=== PATIENT | female | born 1990 | race Caucasian/White ===

== ENCOUNTER 2021-02-21 02:38 | Emergency (ER) | payer OTHER ==
[2021-02-21 02:50] VITALS: BMI 23.9
[2021-02-21] MEDS ORDERED: FAMOTIDINE 20 MG/50 ML IVPB 20 MG/50 ML MG IVPB ONE ×2 (03:32→03:40)
[2021-02-21] MEDS ORDERED: ACETAMINOPHEN 1000 MG/100 ML VIAL (NON FORMULARY) IVPB ONE (03:32)
[2021-02-21] MEDS ORDERED: SODIUM CHLORIDE 0.9% 500 ML INFUS.BAG IV ONE (03:32)
[2021-02-21] MEDS ORDERED: ONDANSETRON 4 MG/2 ML VIAL IVPUSH ONE (03:32)
[2021-02-21] MEDS ORDERED: ONDANSETRON 4 MG/2 ML VIAL ONE (03:40)
[2021-02-21] MEDS ORDERED: ACETAMINOPHEN INJECTION 100 ML IVPB ONE (03:40)
[2021-02-21 04:17] LABS: PH,URINE 6.5 (5.0-8.0); URINE APPEARANCE CLOUDY; URINE BILIRUBIN NEGATIVE (NEGATIVE); URINE COLOR YELLOW; URINE GLUCOSE (UA) NEGATIVE (NEGATIVE); URINE KETONE NEGATIVE (NEGATIVE); URINE LEUK ESTERASE NEGATIVE (NEGATIVE); URINE NITRITE NEGATIVE (NEGATIVE); URINE PROTEIN TRACE (NEGATIVE); URINE UROBILINOGEN 0.2 mg/dL (0.2-1.0)
[2021-02-21 04:18] LABS: BASO % 0.6 % (0-2.0); EOS % 1.7 % (0-4.5); HEMATOCRIT 40.7 % (32.4-45.2); LYMPH % 38.6 % (8-40); MCH 28.8 pg (25.7-33.7); MCHC 34.3 g/dl (32.0-36.0); MEAN CELL VOLUME 83.8 fl (80-96); MEAN PLT VOLUME 8.6 fl (7.5-11.1); MONO % 7.3 % (3.8-10.2); NEUT % 51.8 % (42.8-82.8); PLATELET COUNT 327 10^3/uL (134-434); RBC 4.86 M/mm3 (3.60-5.2); RDW 12.8 % (11.6-15.6); WHITE BLOOD COUNT 7.8 K/mm3 (4.0-10.0)
[2021-02-21 04:34] LABS: INR 0.94 (0.83-1.09); PROTHROMBIN TIME (PATIENT) 11.6 SEC (9.7-13.0)
[2021-02-21 04:36] LABS: ACTIVATED PTT 34.5 SECONDS (25.2-36.5)
[2021-02-21 04:39] LABS: CALCIUM 8.9 mg/dL (8.5-10.1)
[2021-02-21 04:40] LABS: ALBUMIN 4.1 g/dl (3.4-5.0)
[2021-02-21 04:42] LABS: CREATININE 0.8 mg/dL (0.55-1.3)
[2021-02-21 04:44] LABS: BILIRUBIN,TOTAL 0.3 mg/dL (0.2-1)
[2021-02-21 11:17] VITALS: BP 127/60; PULSE 78; TEMP 98
== END 2021-02-21 11:20 | disposition home or self-care (01) ==
LOC: JER 02:38
PROC: 3E0333Z Introduction of Anti-inflammatory into Peripheral Vein, Percutaneous Approach (ICD-10-PCS; principal; 2021-02-21)
PROC: 3E033GC Introduction of Other Therapeutic Substance into Peripheral Vein, Percutaneous Approach (ICD-10-PCS; 2021-02-21)
PROC: 3E033GC Introduction of Other Therapeutic Substance into Peripheral Vein, Percutaneous Approach (ICD-10-PCS; 2021-02-21)
DX: K59.00 Constipation, unspecified (principal)
CPT/HCPCS: 36415; 71046-TC-FY; 74177-TC; 76705-TC; 76830-TC; 80053; 81003; 83690; 84703; 85025; 85610; 85730; 86850; 86900; 86901; 87086; 93005; 93010; 99285-25; C9803; J0131; Q9967; U0003; U0005

== ENCOUNTER 2024-02-20 04:21 | Day surgery (SDC) | payer OTHER ==
[2024-02-16 16:51] VITALS: BMI 22.3
[2024-02-20 11:37] VITALS: RESP 20
[2024-02-20] MEDS ORDERED: PROPOFOL 20 ML ONE (11:58)
[2024-02-20] MEDS ORDERED: MIDAZOLAM HCL 2 MG/2 ML SINGLE DOSE VIAL ONE (11:58)
[2024-02-20 13:09] VITALS: BP 96/64; PULSE 66; TEMP 97.5
== END 2024-02-20 13:10 | disposition home or self-care (01) ==
LOC: JASU-SURG 04:21
PROVIDERS: ATTEND Urology
PROC: 0TF4XZZ Fragmentation in Left Kidney Pelvis, External Approach (ICD-10-PCS; principal; 2024-02-20 13:00)
DX: N20.0 Calculus of kidney (principal)
CPT/HCPCS: 81025